=== PATIENT | female | born 1955 | race Two or more races ===

== ENCOUNTER 2022-09-14 08:27 | Day surgery (SDC) | payer OTHER ==
[2022-09-07 16:00] VITALS: BMI 42.3
[2022-09-14 10:55] VITALS: RESP 18; TEMP 97.8
[2022-09-14 10:57] VITALS: BP 119/75; PULSE 74
== END 2022-09-14 12:18 | disposition home or self-care (01) ==
LOC: FASU-ENDO 08:27
PROVIDERS: ATTEND Internal Medicine Gastroenterology
PROC: 0DJD8ZZ Inspection of Lower Intestinal Tract, Via Natural or Artificial Opening Endoscopic (ICD-10-PCS; principal; 2022-09-14 10:06)
DX: Z12.11 Encounter for screening for malignant neoplasm of colon (principal); K64.1 Second degree hemorrhoids; K57.30 Diverticulosis of large intestine without perforation or abscess without bleeding